=== PATIENT | female | born 2000 | race Caucasian/White ===

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

== ENCOUNTER → 2018-04-12 | Outpatient (CLI) | payer BC, MEDICAID | LOC: M WUC 16:05 | DX: M79.672 Pain in left foot (principal) | CPT/HCPCS: 73630 ==

== ENCOUNTER → 2018-06-05 | Outpatient (REF) | payer BC, MEDICAID ==
[2018-06-05 13:30] LABS: BASO % 1.3 % (0.0-1.0); EOS % 1.3 % (0.0-3.0); HEMATOCRIT 37.3 % (36.0-47.0); HEMOGLOBIN 12.4 g/dl (12.0-15.5); LYMPH # 0.4 10^3/uL (1.5-6.5); MEAN CORPUSCULAR HGB CONC 33.2 g/dl (32.0-36.5); MEAN CORPUSCULAR VOLUME 99.2 fl (80.0-96.0); MONO # 0.1 10^3/uL (0.0-0.8); MONO % 8.4 % (0.0-5.0); RED BLOOD COUNT 3.76 10^6/uL (4.00-5.40); RED CELL DISTRIBUTION WIDTH 15.9 % (11.5-14.5)
[2018-06-05 13:32] LABS: WHITE BLOOD COUNT 1.5 10^3/uL (4.0-10.0)
[2018-06-05 13:33] LABS: PLATELET COUNT, AUTOMATED 13 10^3/uL (150-450); POS COUNT POS FLAG; POSITIVE MORPH POS FLAG
[2018-06-05 13:34] LABS: IMMATURE PLATELET FRACTION % 14.1 % (0.0-9.6)
== END ==
LOC: M LAB REF 12:24
DX: D69.3 Immune thrombocytopenic purpura (principal)

== ENCOUNTER → 2018-08-24 | Outpatient (CLI) | payer BC, MEDICAID ==
[~2018-08-24] MED LIST changes: +ONDA4TAB6 PO; +ZOFR4TAB14 PO
--- NOTE | 2018-08-27 13:38 | REP ---
CT INTERNAL AUDITORY CANALS WITHOUT CONTRAST: HISTORY: Hearing loss. The internal auditory canals, cochlea, vestibules, and semicircular canals are normal in appearance. There is no carotid canal or jugular bulb dehiscence. The ossicles are normal in configuration and position. The scutum and tegmen are intact. The middle ear cavities and mastoid air cells are clear. The visualized sinuses are clear. The nasopharynx is normal in appearance. IMPRESSION: Normal CT internal auditory canals. Electronically Signed by Baldo Ram MD 08/27/2018 01:43 P
== END ==
LOC: M RAD 09:26
PROVIDERS: ATTEND Otolaryngology
DX: H90.0 Conductive hearing loss, bilateral (principal)

== ENCOUNTER 2018-10-16 21:28 | Emergency (ER) | payer MEDICARE, MEDICAID ==
[~2018-10-16] VITALS: Ht 149.9 cm; Wt 59.2 kg
[2018-10-16 21:48] LABS: BASO # 0.1 10^3/uL (0.0-0.2); BASO % 0.7 % (0.0-1.0); EOS # 0.1 10^3/uL (0.0-0.50); EOS % 0.6 % (0.0-3.0); HEMATOCRIT 31.9 % (36.0-47.0); HEMOGLOBIN 10.8 g/dl (12.0-15.5); LYMPH # 2.4 10^3/uL (1.5-6.5); LYMPH % 21.1 % (24.0-44.0); MEAN CORPUSCULAR HEMOGLOBIN 32.6 pg (27.0-33.0); MEAN CORPUSCULAR HGB CONC 33.9 g/dl (32.0-36.5); MEAN CORPUSCULAR VOLUME 96.4 fl (80.0-96.0); MONO # 0.7 10^3/uL (0.0-0.8); MONO % 6.1 % (0.0-5.0); NEUTROPHILS # 8.1 10^3/uL (1.8-7.7); RED BLOOD COUNT 3.31 10^6/uL (4.00-5.40); WHITE BLOOD COUNT 11.4 10^3/uL (4.0-10.0)
[2018-10-16 21:51] LABS: PLATELET COUNT, AUTOMATED 32 10^3/uL (150-450)
[2018-10-16 21:58] LABS: INR 1.51; PROTHROMBIN TIME 18.4 SECONDS (12.1-14.4)
[2018-10-16 21:59] LABS: PARTIAL THROMBOPLASTIN TIME 27.9 SECONDS (25.4-37.6)
[2018-10-16] MEDS ORDERED: PANTOPRAZOLE 40MG INJ (PROTONIX) (C9113) IV ONE (22:00)
[2018-10-16 22:08] LABS: ALT/SGPT 29 U/L (12-78); AMYLASE 29 U/L (25-115); BILIRUBIN,DIRECT 0.3 MG/DL (0.0-0.2); BILIRUBIN,TOTAL 1.1 MG/DL (0.2-1.0); BLOOD UREA NITROGEN 27 MG/DL (7-18); CALCIUM LEVEL 7.2 MG/DL (8.5-10.1); CARBON DIOXIDE LEVEL 26 MEQ/L (21-32); CHLORIDE LEVEL 110 MEQ/L (98-107); CREATININE FOR GFR 0.91 MG/DL (0.55-1.30); GLUCOSE, FASTING 136 MG/DL (70-100); LIPASE 127 U/L (73-393); POTASSIUM SERUM 4.1 MEQ/L (3.5-5.1); SODIUM LEVEL 141 MEQ/L (136-145)
[2018-10-16] MEDS ORDERED: NS 500 ML IV ONE (22:15)
[2018-10-16] MEDS ORDERED: NS 1,000 ML IV ONE (22:15)
[2018-10-16] MEDS ORDERED: ONDANSETRON 4MG/2ML VIAL (J2405) IV ONE (22:15)
[2018-10-16 23:30] VITALS: BP 112/62
== END 2018-10-16 23:56 | disposition short-term general hospital (02) ==
LOC: M ED 21:28
DX: R04.2 Hemoptysis (principal); D69.3 Immune thrombocytopenic purpura; D50.0 Iron deficiency anemia secondary to blood loss (chronic); Z88.8 Allergy status to other drugs, medicaments and biological substances; Z91.02 Food additives allergy status; R16.0 Hepatomegaly, not elsewhere classified; E03.9 Hypothyroidism, unspecified; K73.9 Chronic hepatitis, unspecified; Q90.9 Down syndrome, unspecified
CPT/HCPCS: 36430; 80048; 80076; 82150; 83690; 85025; 85049; 85055; 85610; 85730; 86850; 86900; 86901; 86920; 93041; 96374; 96375; 99285; C9113; J2405; P9016

== ENCOUNTER → 2018-10-24 | Outpatient (REF) | payer MEDICARE, MEDICAID ==
[2018-10-24 12:56] LABS: BASO % 0.9 % (0.0-1.0); EOS % 0.9 % (0.0-3.0); HEMATOCRIT 32.9 % (36.0-47.0); HEMOGLOBIN 10.7 g/dl (12.0-15.5); LYMPH # 0.6 10^3/uL (1.5-6.5); LYMPH % 29.8 % (24.0-44.0); MEAN CORPUSCULAR HEMOGLOBIN 31.4 pg (27.0-33.0); MEAN CORPUSCULAR HGB CONC 32.5 g/dl (32.0-36.5); MEAN CORPUSCULAR VOLUME 96.5 fl (80.0-96.0); MONO # 0.2 10^3/uL (0.0-0.8); MONO % 8.4 % (0.0-5.0); NEUTROPHILS # 1.3 10^3/uL (1.8-7.7); RED BLOOD COUNT 3.41 10^6/uL (4.00-5.40); WHITE BLOOD COUNT 2.2 10^3/uL (4.0-10.0)
[2018-10-24 13:01] LABS: PLATELET COUNT, AUTOMATED 18 10^3/uL (150-450)
== END ==
LOC: M LAB REF 12:03
PROVIDERS: ATTEND Nurse Practitioner Adult Health
DX: D69.3 Immune thrombocytopenic purpura (principal); D69.49 Other primary thrombocytopenia

== ENCOUNTER → 2018-11-08 | Outpatient (REF) | payer MEDICARE, MEDICAID ==
[2018-11-08 12:32] LABS: BASO % 1.4 % (0.0-1.0); EOS % 1.4 % (0.0-3.0); HEMATOCRIT 31.7 % (36.0-47.0); HEMOGLOBIN 10.1 g/dl (12.0-15.5); LYMPH # 0.5 10^3/uL (1.5-6.5); LYMPH % 31.8 % (24.0-44.0); MEAN CORPUSCULAR HEMOGLOBIN 31.4 pg (27.0-33.0); MEAN CORPUSCULAR HGB CONC 31.9 g/dl (32.0-36.5); MEAN CORPUSCULAR VOLUME 98.4 fl (80.0-96.0); MONO # 0.1 10^3/uL (0.0-0.8); MONO % 9.5 % (0.0-5.0); NEUTROPHILS % 55.9 % (36.0-66.0); RED BLOOD COUNT 3.22 10^6/uL (4.00-5.40); WHITE BLOOD COUNT 1.5 10^3/uL (4.0-10.0)
[2018-11-08 12:34] LABS: NEUTROPHILS # 0.8 10^3/uL (1.8-7.7); PLATELET COUNT, AUTOMATED 13 10^3/uL (150-450)
== END ==
LOC: M LAB REF 12:24
PROVIDERS: ATTEND Nurse Practitioner Adult Health
DX: D69.3 Immune thrombocytopenic purpura (principal)

== ENCOUNTER 2018-11-23 20:24 | Emergency (ER) | payer MEDICARE, MEDICAID ==
[~2018-11-23] VITALS: Ht 149.9 cm; Wt 58.2 kg
[2018-11-23] MEDS ORDERED: NADO20TA PO (20:54)
[2018-11-23 21:49] LABS: BASO % 1.1 % (0.0-1.0); EOS % 1.1 % (0.0-3.0); HEMATOCRIT 29.4 % (36.0-47.0); HEMOGLOBIN 9.5 g/dl (12.0-15.5); LYMPH % 8.5 % (24.0-44.0); MEAN CORPUSCULAR HEMOGLOBIN 30.4 pg (27.0-33.0); MEAN CORPUSCULAR HGB CONC 32.3 g/dl (32.0-36.5); MEAN CORPUSCULAR VOLUME 94.2 fl (80.0-96.0); MONO # 0.2 10^3/uL (0.0-0.8); MONO % 11.9 % (0.0-5.0); NEUTROPHILS # 1.4 10^3/uL (1.8-7.7); NEUTROPHILS % 77.4 % (36.0-66.0); RED BLOOD COUNT 3.12 10^6/uL (4.00-5.40)
[2018-11-23] MEDS ORDERED: NS 1,000 ML IV ONE (22:00)
[2018-11-23] MEDS ORDERED: cefTRIAXone SOD 2 GM in D5W MINI-BAG PLUS 50 ML IV ONE (22:00)
[2018-11-23 22:06] LABS: ALBUMIN 3.2 GM/DL (3.2-5.2); ALT/SGPT 41 U/L (12-78); BILIRUBIN,DIRECT 0.3 MG/DL (0.0-0.2); BLOOD UREA NITROGEN 22 MG/DL (7-18); CALCIUM LEVEL 7.6 MG/DL (8.5-10.1); CARBON DIOXIDE LEVEL 23 MEQ/L (21-32); CHLORIDE LEVEL 110 MEQ/L (98-107); CREATININE FOR GFR 0.86 MG/DL (0.55-1.30); GLUCOSE, FASTING 124 MG/DL (70-100); POTASSIUM SERUM 3.4 MEQ/L (3.5-5.1); SODIUM LEVEL 140 MEQ/L (136-145); TOTAL PROTEIN 7.1 GM/DL (6.4-8.2)
[2018-11-23 22:07] LABS: WHITE BLOOD COUNT 1.8 10^3/uL (4.0-10.0)
[2018-11-23 22:08] LABS: LYMPH # 0.2 10^3/uL (1.5-6.5); PLATELET COUNT, AUTOMATED 11 10^3/uL (150-450)
[2018-11-23 22:39] LABS: INFLUENZA A AMPLIFICATION NEGATIVE (NEGATIVE); INFLUENZA B AMPLIFICATION NEGATIVE (NEGATIVE)
[2018-11-23] MEDS ORDERED: POTASSIUM CHLORIDE 10 MEQ SR TABLET PO ONE (23:00)
[2018-11-24 00:11] VITALS: BP 110/60
--- NOTE | 2018-11-24 09:47 | REP ---
Cough and dyspnea. COMPARISON: 04/20/2017. FINDINGS: The superior mediastinal structures are midline. The cardiac silhouette is unremarkable in size, shape, and position. The diaphragmatic surfaces of the lungs are regular, and the costophrenic angles are clear. The pulmonary chaves are clear. The imaged osseous structures are intact. IMPRESSION: There is no acute cardiopulmonary disease. Electronically Signed by Cesar Choe DO 11/24/2018 01:46 P
[2018-11-27 08:13] LABS: IgG SERUM (part of Subclasses) 2266 mg/dL (700-1600); IgG Subclass 1 1052 mg/dL (248-810); IgG Subclass 2 442 mg/dL (130-555); IgG Subclass 3 71 mg/dL (15-102); IgG Subclass 4 31 mg/dL (2-96)
== END 2018-11-24 00:14 | disposition home or self-care (01) ==
LOC: M ED 20:24
DX: D64.9 Anemia, unspecified (principal); E03.9 Hypothyroidism, unspecified; Z79.890 Hormone replacement therapy; Z91.02 Food additives allergy status; Z91.011 Allergy to milk products; Z91.018 Allergy to other foods; Z91.048 Other nonmedicinal substance allergy status
CPT/HCPCS: 71046; 80048; 80076; 81001; 82784; 82787; 83605; 85025; 85049; 85055; 87040; 87086; 87502; 93041; 94760; 96374; 99284; J0696

== ENCOUNTER 2018-11-24 15:44 | Emergency (ER) | payer MEDICARE, MEDICAID ==
[~2018-11-24] VITALS: Ht 149.9 cm; Wt 54.5 kg
[~2018-11-24 15:44] MED LIST changes: +NADO20TA PO
[2018-11-24] MEDS ORDERED: cefTRIAXone SOD 1 GM in D5W MINI-BAG PLUS 50 ML IV ONE (16:45)
[2018-11-24 17:30] LABS: BASO % 1.2 % (0.0-1.0); EOS % 3.7 % (0.0-3.0); HEMATOCRIT 27.2 % (36.0-47.0); HEMOGLOBIN 8.6 g/dl (12.0-15.5); LYMPH % 17.1 % (24.0-44.0); MEAN CORPUSCULAR HEMOGLOBIN 30.4 pg (27.0-33.0); MEAN CORPUSCULAR HGB CONC 31.6 g/dl (32.0-36.5); MEAN CORPUSCULAR VOLUME 96.1 fl (80.0-96.0); MONO # 0.1 10^3/uL (0.0-0.8); MONO % 17.1 % (0.0-5.0); NEUTROPHILS % 60.9 % (36.0-66.0); RED BLOOD COUNT 2.83 10^6/uL (4.00-5.40)
[2018-11-24 18:08] LABS: WHITE BLOOD COUNT 0.8 10^3/uL (4.0-10.0)
[2018-11-24 18:09] LABS: LYMPH # 0.1 10^3/uL (1.5-6.5); NEUTROPHILS # 0.5 10^3/uL (1.8-7.7); PLATELET COUNT, AUTOMATED 10 10^3/uL (150-450)
[2018-11-24 20:21] VITALS: BP 118/68
== END 2018-11-24 20:24 | disposition home or self-care (01) ==
LOC: M ED 15:44
DX: D64.9 Anemia, unspecified (principal); D70.9 Neutropenia, unspecified; K75.9 Inflammatory liver disease, unspecified; Z79.899 Other long term (current) drug therapy; Z91.018 Allergy to other foods; Z91.011 Allergy to milk products; Z91.89 Other specified personal risk factors, not elsewhere classified; Z88.8 Allergy status to other drugs, medicaments and biological substances
CPT/HCPCS: 85025; 85046; 85049; 85055; 87486; 87581; 87633; 87798; 96365; 99284; J0696

== ENCOUNTER → 2018-11-29 | Outpatient (REF) | payer MEDICARE, MEDICAID ==
[2018-11-29 13:25] LABS: HEMATOCRIT 33.2 % (36.0-47.0); HEMOGLOBIN 10.5 g/dl (12.0-15.5); MEAN CORPUSCULAR HEMOGLOBIN 30.1 pg (27.0-33.0); MEAN CORPUSCULAR HGB CONC 31.6 g/dl (32.0-36.5); MEAN CORPUSCULAR VOLUME 95.1 fl (80.0-96.0); RED BLOOD COUNT 3.49 10^6/uL (4.00-5.40); WHITE BLOOD COUNT 2.1 10^3/uL (4.0-10.0)
[2018-11-29 13:43] LABS: PLATELET COUNT, AUTOMATED 17 10^3/uL (150-450)
[2018-11-29 14:32] LABS: ATYPICAL LYMPH 2 % (0-5); LYMPHOCYTES 31 % (16-52); MONOCYTES 7 % (0-8); NEUTROPHILS 58 % (35-75); PLATELET ESTIMATE MARKED DECREASE (NORMAL)
[2018-11-29 14:33] LABS: ANISOCYTOSIS 1+; OVALOCYTES 1+; POIKILOCYTOSIS 1+
== END ==
LOC: M LAB REF 12:44
PROVIDERS: ATTEND Nurse Practitioner Adult Health
DX: D69.3 Immune thrombocytopenic purpura (principal)

== ENCOUNTER → 2018-12-25 | Outpatient (REF) | payer MEDICARE, MEDICAID ==
[2018-12-25 13:52] LABS: BASO % 0.7 % (0.0-1.0); EOS % 0.7 % (0.0-3.0); HEMATOCRIT 34.2 % (36.0-47.0); HEMOGLOBIN 10.8 g/dl (12.0-15.5); LYMPH # 0.4 10^3/uL (1.5-6.5); LYMPH % 28.4 % (24.0-44.0); MEAN CORPUSCULAR HEMOGLOBIN 30.7 pg (27.0-33.0); MEAN CORPUSCULAR HGB CONC 31.6 g/dl (32.0-36.5); MEAN CORPUSCULAR VOLUME 97.2 fl (80.0-96.0); MONO # 0.1 10^3/uL (0.0-0.8); NEUTROPHILS % 61.2 % (36.0-66.0); RED BLOOD COUNT 3.52 10^6/uL (4.00-5.40)
[2018-12-25 13:55] LABS: NEUTROPHILS # 0.8 10^3/uL (1.8-7.7); WHITE BLOOD COUNT 1.3 10^3/uL (4.0-10.0)
[2018-12-25 13:56] LABS: PLATELET COUNT, AUTOMATED 12 10^3/uL (150-450)
[2018-12-28 07:12] LABS: TISSUE TRANSGLUTAMINASE IgA <2 UNITS
[2018-12-28 07:13] LABS: ENDOMYSIAL ABY IgA Negative
== END ==
LOC: M LAB REF 13:09
PROVIDERS: ATTEND Nurse Practitioner Adult Health
DX: D69.3 Immune thrombocytopenic purpura (principal); E03.8 Other specified hypothyroidism; E06.3 Autoimmune thyroiditis

== ENCOUNTER → 2019-01-20 | Outpatient (REF) | payer MEDICARE, MEDICAID ==
[2019-01-20 12:34] LABS: BASO % 0.8 % (0.0-1.0); EOS % 1.7 % (0.0-3.0); HEMATOCRIT 33.4 % (36.0-47.0); HEMOGLOBIN 10.7 g/dl (12.0-15.5); LYMPH # 0.4 10^3/uL (1.5-6.5); LYMPH % 31.4 % (24.0-44.0); MEAN CORPUSCULAR HEMOGLOBIN 30.9 pg (27.0-33.0); MEAN CORPUSCULAR VOLUME 96.5 fl (80.0-96.0); MONO # 0.1 10^3/uL (0.0-0.8); MONO % 9.1 % (0.0-5.0); RED BLOOD COUNT 3.46 10^6/uL (4.00-5.40)
[2019-01-20 13:36] LABS: PLATELET COUNT, AUTOMATED 12 10^3/uL (150-450); WHITE BLOOD COUNT 1.2 10^3/uL (4.0-10.0)
[2019-01-20 13:39] LABS: NEUTROPHILS # 0.7 10^3/uL (1.8-7.7)
== END ==
LOC: M LAB REF 12:23
PROVIDERS: ATTEND Nurse Practitioner Adult Health
DX: D64.9 Anemia, unspecified (principal)

== ENCOUNTER → 2019-01-29 | Outpatient (REF) | payer MEDICARE, MEDICAID ==
[2019-01-29 13:54] LABS: BASO % 0.7 % (0.0-1.0); EOS % 1.4 % (0.0-3.0); HEMATOCRIT 34.3 % (36.0-47.0); HEMOGLOBIN 10.6 g/dl (12.0-15.5); LYMPH # 0.4 10^3/uL (1.5-6.5); LYMPH % 28.4 % (24.0-44.0); MEAN CORPUSCULAR HEMOGLOBIN 30.7 pg (27.0-33.0); MEAN CORPUSCULAR HGB CONC 30.9 g/dl (32.0-36.5); MEAN CORPUSCULAR VOLUME 99.4 fl (80.0-96.0); MONO # 0.1 10^3/uL (0.0-0.8); MONO % 9.5 % (0.0-5.0); NEUTROPHILS % 59.3 % (36.0-66.0); RED BLOOD COUNT 3.45 10^6/uL (4.00-5.40)
[2019-01-29 14:29] LABS: WHITE BLOOD COUNT 1.5 10^3/uL (4.0-10.0)
[2019-01-29 14:30] LABS: NEUTROPHILS # 0.9 10^3/uL (1.8-7.7); PLATELET COUNT, AUTOMATED 14 10^3/uL (150-450)
== END ==
LOC: M LAB REF 13:15
PROVIDERS: ATTEND Nurse Practitioner Adult Health
DX: D69.3 Immune thrombocytopenic purpura (principal)

== ENCOUNTER → 2019-05-16 | Outpatient (REF) | payer MEDICARE, MEDICAID ==
[2019-05-16 12:24] LABS: BASO % 0.9 % (0.0-1.0); EOS % 0.9 % (0.0-3.0); HEMATOCRIT 37.6 % (36.0-47.0); HEMOGLOBIN 12.3 g/dl (12.0-15.5); LYMPH # 0.5 10^3/uL (1.5-5.0); LYMPH % 23.1 % (24.0-44.0); MEAN CORPUSCULAR HEMOGLOBIN 32.4 pg (27.0-33.0); MEAN CORPUSCULAR HGB CONC 32.7 g/dl (32.0-36.5); MEAN CORPUSCULAR VOLUME 98.9 fl (80.0-96.0); MONO # 0.2 10^3/uL (0.0-0.8); MONO % 8.1 % (0.0-5.0); NEUTROPHILS # 1.5 10^3/uL (1.5-8.5); NEUTROPHILS % 66.5 % (36.0-66.0); WHITE BLOOD COUNT 2.2 10^3/uL (4.0-10.0)
[2019-05-16 13:11] LABS: PLATELET COUNT, AUTOMATED 16 10^3/uL (150-450)
== END ==
LOC: M LAB REF 11:54
PROVIDERS: ATTEND Nurse Practitioner Adult Health
DX: D69.3 Immune thrombocytopenic purpura (principal)

== ENCOUNTER → 2019-05-27 | Outpatient (REF) | payer MEDICARE, MEDICAID ==
[~2019-05-27] MED LIST changes: -OMEP40CA2; +OMEP40CA97
[2019-05-27 17:11] LABS: EOS % 1.4 % (0.0-3.0); HEMOGLOBIN 12.5 g/dl (12.0-15.5); LYMPH # 0.5 10^3/uL (1.5-5.0); MEAN CORPUSCULAR HEMOGLOBIN 32.4 pg (27.0-33.0); MEAN CORPUSCULAR HGB CONC 32.9 g/dl (32.0-36.5); MEAN CORPUSCULAR VOLUME 98.4 fl (80.0-96.0); MONO # 0.2 10^3/uL (0.0-0.8); MONO % 8.2 % (0.0-5.0); NEUTROPHILS # 1.3 10^3/uL (1.5-8.5); NEUTROPHILS % 64.4 % (36.0-66.0); RED BLOOD COUNT 3.86 10^6/uL (4.00-5.40); WHITE BLOOD COUNT 2.1 10^3/uL (4.0-10.0)
[2019-05-27 17:17] LABS: PLATELET COUNT, AUTOMATED 16 10^3/uL (150-450)
== END ==
LOC: M LAB REF 16:23
PROVIDERS: ATTEND Nurse Practitioner Adult Health
DX: D69.3 Immune thrombocytopenic purpura (principal)

== ENCOUNTER → 2019-10-01 | Outpatient (REF) | payer MEDICARE, MEDICAID ==
[2019-10-01 17:08] LABS: BASO # 0.1 10^3/uL (0.0-0.2); BASO % 1.8 % (0.0-1.0); EOS # 0.1 10^3/uL (0.0-0.5); EOS % 2.1 % (0.0-3.0); HEMATOCRIT 37.4 % (36.0-47.0); HEMOGLOBIN 11.6 g/dl (12.0-15.5); LYMPH # 0.7 10^3/uL (1.5-5.0); LYMPH % 18.8 % (24.0-44.0); MEAN CORPUSCULAR HEMOGLOBIN 30.9 pg (27.0-33.0); MEAN CORPUSCULAR VOLUME 99.7 fl (80.0-96.0); MONO # 0.6 10^3/uL (0.0-0.8); MONO % 14.7 % (0.0-5.0); NEUTROPHILS # 2.4 10^3/uL (1.5-8.5); NEUTROPHILS % 62.1 % (36.0-66.0); RED BLOOD COUNT 3.75 10^6/uL (4.00-5.40); WHITE BLOOD COUNT 3.9 10^3/uL (4.0-10.0)
[2019-10-01 17:49] LABS: PLATELET COUNT, AUTOMATED 61 10^3/uL (150-450)
== END ==
LOC: M LAB REF 16:54
PROVIDERS: ATTEND Nurse Practitioner Adult Health
DX: D69.3 Immune thrombocytopenic purpura (principal)

== ENCOUNTER → 2019-10-08 | Outpatient (REF) | payer MEDICARE, MEDICAID ==
[2019-10-08 16:53] LABS: BASO # 0.1 10^3/uL (0.0-0.2); BASO % 1.3 % (0.0-1.0); EOS # 0.1 10^3/uL (0.0-0.5); EOS % 1.8 % (0.0-3.0); HEMATOCRIT 37.1 % (36.0-47.0); HEMOGLOBIN 11.8 g/dl (12.0-15.5); LYMPH # 0.7 10^3/uL (1.5-5.0); LYMPH % 17.6 % (24.0-44.0); MEAN CORPUSCULAR HEMOGLOBIN 31.6 pg (27.0-33.0); MEAN CORPUSCULAR HGB CONC 31.8 g/dl (32.0-36.5); MEAN CORPUSCULAR VOLUME 99.5 fl (80.0-96.0); MONO # 0.5 10^3/uL (0.0-0.8); MONO % 13.4 % (0.0-5.0); NEUTROPHILS # 2.5 10^3/uL (1.5-8.5); NEUTROPHILS % 65.4 % (36.0-66.0); RED BLOOD COUNT 3.73 10^6/uL (4.00-5.40); WHITE BLOOD COUNT 3.8 10^3/uL (4.0-10.0)
[2019-10-08 16:55] LABS: PLATELET COUNT, AUTOMATED 51 10^3/uL (150-450)
== END ==
LOC: M LAB REF 16:18
PROVIDERS: ATTEND Nurse Practitioner Adult Health
DX: D69.3 Immune thrombocytopenic purpura (principal); K75.4 Autoimmune hepatitis; K85.90 Acute pancreatitis without necrosis or infection, unspecified

== ENCOUNTER → 2019-10-15 | Outpatient (REF) | payer MEDICARE, MEDICAID ==
[2019-10-15 16:47] LABS: HEMATOCRIT 38.9 % (36.0-47.0); HEMOGLOBIN 12.6 g/dl (12.0-15.5); LYMPH # 0.8 10^3/uL (1.5-5.0); LYMPH % 21.1 % (24.0-44.0); MEAN CORPUSCULAR HEMOGLOBIN 31.9 pg (27.0-33.0); MEAN CORPUSCULAR HGB CONC 32.4 g/dl (32.0-36.5); MEAN CORPUSCULAR VOLUME 98.5 fl (80.0-96.0); MONO # 0.4 10^3/uL (0.0-0.8); MONO % 9.3 % (0.0-5.0); NEUTROPHILS # 2.7 10^3/uL (1.5-8.5); NEUTROPHILS % 67.3 % (36.0-66.0); RED BLOOD COUNT 3.95 10^6/uL (4.00-5.40)
[2019-10-15 16:49] LABS: PLATELET COUNT, AUTOMATED 57 10^3/uL (150-450)
== END ==
LOC: M LAB REF 16:13
PROVIDERS: ATTEND Nurse Practitioner Adult Health
DX: D69.3 Immune thrombocytopenic purpura (principal); K75.4 Autoimmune hepatitis; K85.90 Acute pancreatitis without necrosis or infection, unspecified

== ENCOUNTER → 2021-06-08 | Outpatient (CLI) | payer MEDICARE, MEDICAID ==
[~2021-06-08] MED LIST changes: +OMEP40CA4; -OMEP40CA97
--- NOTE | 2021-06-08 15:12 | REP ---
INDICATION: HYPOTHYROIDISM, DYSPHAGIA. COMPARISON: None. TECHNIQUE: Real-time sonographic evaluation of the thyroid with Doppler FINDINGS: The right lobe of the thyroid gland measures 2.8 x 1.3 x 1.5 cm and the left lobe measures 2.9 x 1 x 1 x 1 cm. The isthmus measures 2.2 mm. There are no cystic or solid masses. IMPRESSION: Small thyroid <Electronically signed by Cesar Choe > 06/08/21 [id number]
== END ==
LOC: M RAD 14:42
PROVIDERS: ATTEND Pediatrics Pediatric Endocrinology
DX: R13.10 Dysphagia, unspecified (principal)

== ENCOUNTER → 2021-07-07 | Outpatient (REF) | payer MEDICARE, MEDICAID ==
[2021-07-07 16:38] LABS: BASO # 0.1 10^3/uL (0.0-0.2); BASO % 2.1 % (0.0-1.0); EOS # 0.1 10^3/uL (0.0-0.5); EOS % 2.5 % (0.0-3.0); HEMATOCRIT 44.9 % (36.0-47.0); HEMOGLOBIN 15.1 g/dl (12.0-15.5); LYMPH # 1.5 10^3/uL (1.5-5.0); LYMPH % 28.1 % (24.0-44.0); MEAN CORPUSCULAR HEMOGLOBIN 34.4 pg (27.0-33.0); MEAN CORPUSCULAR HGB CONC 33.6 g/dl (32.0-36.5); MEAN CORPUSCULAR VOLUME 102.3 fl (80.0-96.0); MONO # 0.8 10^3/uL (0.0-0.8); MONO % 14.8 % (2.0-8.0); NEUTROPHILS # 2.7 10^3/uL (1.5-8.5); NEUTROPHILS % 52.3 % (36.0-66.0); PLATELET COUNT, AUTOMATED 176 10^3/uL (150-450); RED BLOOD COUNT 4.39 10^6/uL (4.00-5.40); WHITE BLOOD COUNT 5.2 10^3/uL (4.0-10.0)
== END ==
LOC: M LAB REF 16:23
PROVIDERS: ATTEND Nurse Practitioner Adult Health
DX: D69.6 Thrombocytopenia, unspecified (principal); D72.819 Decreased white blood cell count, unspecified

== ENCOUNTER → 2022-04-21 | Outpatient (CLI) | payer MEDICAID, MEDICARE ==
[~2022-04-21] MED LIST changes: +ISOVUE-370 76% 100ML VIAL As Ordered ONE
== END ==
LOC: M RAD 09:03
DX: K76.6 Portal hypertension (principal); R93.2 Abnormal findings on diagnostic imaging of liver and biliary tract; K59.00 Constipation, unspecified
CPT/HCPCS: 74170; Q9967

== ENCOUNTER → 2022-07-19 | Outpatient (REF) | payer MEDICARE, MEDICAID ==
[~2022-07-19] MED LIST changes: -ISOVUE-370 76% 100ML VIAL As Ordered ONE
[2022-07-19 18:14] LABS: BASO # 0.1 10^3/uL (0.0-0.2); BASO % 1.4 % (0.0-1.0); EOS # 0.1 10^3/uL (0.0-0.5); EOS % 1.4 % (0.0-3.0); HEMATOCRIT 46.6 % (36.0-47.0); HEMOGLOBIN 15.6 g/dl (12.0-15.5); LYMPH # 1.3 10^3/uL (1.5-5.0); LYMPH % 19.3 % (24.0-44.0); MEAN CORPUSCULAR HEMOGLOBIN 35.4 pg (27.0-33.0); MEAN CORPUSCULAR HGB CONC 33.5 g/dl (32.0-36.5); MEAN CORPUSCULAR VOLUME 105.7 fl (80.0-96.0); MONO # 0.6 10^3/uL (0.0-0.8); MONO % 8.6 % (2.0-8.0); NEUTROPHILS # 4.5 10^3/uL (1.5-8.5); PLATELET COUNT, AUTOMATED 141 10^3/uL (150-450); RED BLOOD COUNT 4.41 10^6/uL (4.00-5.40); WHITE BLOOD COUNT 6.5 10^3/uL (4.0-10.0)
[2022-07-19 18:17] LABS: IMMUNOGLOBULIN A 329.8 MG/DL (40-350); IMMUNOGLOBULIN M 55.2 MG/DL (50-300)
== END ==
LOC: M LAB REF 16:41
PROVIDERS: ATTEND Nurse Practitioner Adult Health
DX: Q90.9 Down syndrome, unspecified (principal); B99.9 Unspecified infectious disease; D69.6 Thrombocytopenia, unspecified

== ENCOUNTER → 2022-08-09 | Outpatient (CLI) | payer MEDICARE ==
[~2022-08-09] MED LIST changes: +ISOVUE-370 76% 100ML VIAL As Ordered ONE
== END ==
LOC: M RAD 08:30
DX: K76.6 Portal hypertension (principal); R93.2 Abnormal findings on diagnostic imaging of liver and biliary tract
CPT/HCPCS: 74170; Q9967

== ENCOUNTER → 2023-01-30 | Outpatient (REF) | payer MEDICARE ==
[~2023-01-30] MED LIST changes: -ISOVUE-370 76% 100ML VIAL As Ordered ONE
[2023-01-30 17:55] LABS: BASO # 0.1 10^3/uL (0.0-0.2); BASO % 1.9 % (0.0-1.0); EOS # 0.1 10^3/uL (0.0-0.5); EOS % 1.9 % (0.0-3.0); HEMOGLOBIN 14.2 g/dl (12.0-15.5); LYMPH # 1.5 10^3/uL (1.5-5.0); LYMPH % 27.8 % (24.0-44.0); MEAN CORPUSCULAR HEMOGLOBIN 34.9 pg (27.0-33.0); MEAN CORPUSCULAR VOLUME 105.7 fl (80.0-96.0); MONO # 0.7 10^3/uL (0.0-0.8); MONO % 12.9 % (2.0-8.0); NEUTROPHILS # 2.9 10^3/uL (1.5-8.5); NEUTROPHILS % 54.9 % (36.0-66.0); PLATELET COUNT, AUTOMATED 146 10^3/uL (150-450); RED BLOOD COUNT 4.07 10^6/uL (4.00-5.40); WHITE BLOOD COUNT 5.2 10^3/uL (4.0-10.0)
== END ==
LOC: M LAB REF 16:41
PROVIDERS: ATTEND Nurse Practitioner Adult Health
DX: D69.6 Thrombocytopenia, unspecified (principal)

== ENCOUNTER → 2023-05-15 | Outpatient (CLI) | payer MEDICARE, MEDICAID | LOC: M CARPUL 14:08 | PROVIDERS: ATTEND Nurse Practitioner Family | DX: I31.39 Other pericardial effusion (noninflammatory) (principal) ==

== ENCOUNTER → 2024-05-26 | Outpatient (REF) | payer MEDICARE, MEDICAID ==
[~2024-05-26] MED LIST changes: +ONDA-282 PO; -ONDA4TAB6 PO
== END ==
LOC: M LAB REF 13:37
PROVIDERS: ATTEND Nurse Practitioner Adult Health
DX: R53.83 Other fatigue (principal)

== ENCOUNTER → 2024-09-16 | Outpatient (CLI) | payer MEDICARE, MEDICAID ==
[~2024-09-16] MED LIST changes: +LIDOCAINE 2% 100MG/5ML SDV (FOR ANES.) ONE; +MIDAZOLAM INJ 2MG/2ML VIAL As Ordered ONE; +propofoL 200 MG/20 ML VIAL ONE
[2024-09-16 13:00] VITALS: TEMP 98.5
[2024-09-16 15:30] VITALS: BP 128/60; O2SAT 99
== END ==
LOC: M RADPRO 11:47
PROVIDERS: ATTEND Orthopaedic Surgery
DX: M43.06 Spondylolysis, lumbar region (principal); M51.25 Other intervertebral disc displacement, thoracolumbar region; M51.26 Other intervertebral disc displacement, lumbar region; M51.27 Other intervertebral disc displacement, lumbosacral region
CPT/HCPCS: 72148; J2250

== ENCOUNTER → 2024-10-01 | Outpatient (REF) | payer MEDICARE, MEDICAID ==
[~2024-10-01] MED LIST changes: -LIDOCAINE 2% 100MG/5ML SDV (FOR ANES.) ONE; -MIDAZOLAM INJ 2MG/2ML VIAL As Ordered ONE; -propofoL 200 MG/20 ML VIAL ONE
== END ==
LOC: M LAB REF 12:05
PROVIDERS: ATTEND Nurse Practitioner Adult Health
DX: E03.9 Hypothyroidism, unspecified (principal)

== ENCOUNTER → 2024-10-23 | Outpatient (REF) | payer MEDICARE, MEDICAID ==
[2024-10-23 16:27] LABS: FREE T4 1.95 NG/DL (0.89-1.76)
[2024-10-23 17:35] LABS: FREE T3 6.3 PG/ML (2.3-4.2)
== END ==
LOC: M LAB REF 15:17
PROVIDERS: ATTEND Nurse Practitioner Adult Health
DX: E03.9 Hypothyroidism, unspecified (principal)

== ENCOUNTER → 2025-02-05 | Outpatient (REF) | payer MEDICARE, MEDICAID ==
[~2025-02-05] MED LIST changes: -NADO20TA PO; +NADO20TA38 PO
[2025-02-09 17:09] LABS: RUBEOLA IgG ANTIBODY 25.4 AU/mL (>16.49)
== END ==
LOC: M LAB REF 17:46
PROVIDERS: ATTEND Nurse Practitioner Adult Health
DX: E03.9 Hypothyroidism, unspecified (principal); Z01.84 Encounter for antibody response examination

== ENCOUNTER → 2025-04-23 | Outpatient (REF) | payer MEDICARE, MEDICAID | LOC: M LAB REF 14:39 | PROVIDERS: ATTEND Nurse Practitioner Adult Health | DX: E03.9 Hypothyroidism, unspecified (principal); D69.3 Immune thrombocytopenic purpura ==

== ENCOUNTER → 2025-05-28 | Outpatient (REF) | payer MEDICARE, MEDICAID ==
[2025-05-29 12:23] LABS: HEPATITIS B SURF AB QUANT < 5 mIU/mL (> OR = 10)
[2025-05-29 13:11] LABS: HEPATITIS A IgG TOTAL REACTIVE (NON-REACTIVE)
[2025-06-02 08:08] LABS: LIVER-KIDNEY MICROSOMAL ABY <= 20.0 U (<=20.0)
[2025-06-03 01:48] LABS: ANTI-SMOOTH MUSCLE ANTIBODY 41 U (<20)
== END ==
LOC: M LAB REF 14:26
PROVIDERS: ATTEND Nurse Practitioner Adult Health
DX: I81 Portal vein thrombosis (principal); K90.49 Malabsorption due to intolerance, not elsewhere classified; R74.8 Abnormal levels of other serum enzymes

== ENCOUNTER → 2025-05-28 | Outpatient (REF) | payer MEDICARE, MEDICAID | LOC: M LAB REF 12:58 | PROVIDERS: ATTEND Internal Medicine Transplant Hepatology | DX: R74.8 Abnormal levels of other serum enzymes (principal); I81 Portal vein thrombosis; K90.49 Malabsorption due to intolerance, not elsewhere classified ==

== ENCOUNTER → 2025-07-09 | Outpatient (REF) | payer MEDICARE, MEDICAID | LOC: M LAB REF 13:50 | PROVIDERS: ATTEND Nurse Practitioner Adult Health | DX: E03.9 Hypothyroidism, unspecified (principal); D69.3 Immune thrombocytopenic purpura ==